=== PATIENT | female | born 1975 | race African-American/Black ===

== ENCOUNTER 2016-12-13 22:29 | Emergency (ER) | payer OTHER ==
[2016-12-13 23:09] VITALS: BP 164/87; PULSE 109; TEMP 99.5; BMI 36.8
--- NOTE | 2016-12-14 00:30 | PDOC ---
History of Present Illness <AakashSedashamika Berry - Last Filed: 12/14/16 01:55> - General History Source: Patient Exam Limitations: No Limitations - History of Present Illness Initial Comments: 12/14/16 01:57 The patient is a 39 year old female,, with a significant past medical history of Graves disease, cardiomyopathy after , gallstones, anemia, and HTN who presents to the ED complaining of suprapubic cramping and vaginal discharge. Patient had an US last week that revealed crown rump at 6 weeks with no motion. Patient states that her beta value went from 900 to 3500 last week. 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 She denies any fever or chills. She denies SOB or cp. <Marychuy Waldron - Last Filed: 12/14/16 01:59> - General Chief Complaint: Vaginal Bleeding Stated Complaint: VAGINAL BLEEDING/7 WKS Time Seen by Provider: 12/14/16 00:29 Past History - Past Medical History Anemia: Yes HTN: Yes Thyroid Disease: Yes (GRAVES DISEASE) - Psycho/Social/Smoking Cessation Hx Anxiety: Yes Suicidal Ideation: No Smoking Status: No Smoking History: Never smoked Have you smoked in the past 12 months: No Number of Cigarettes Smoked Daily: 0 Information on smoking cessation initiated: No Hx Alcohol Use: No Drug/Substance Use Hx: No Substance Use Type: None Hx Substance Use Treatment: No <Seda Finn - Last Filed: 12/14/16 01:55> <Marychuy Waldron - Last Filed: 12/14/16 01:59> - Past Medical History Allergies/Adverse Reactions: Allergies Allergy/AdvReac Type Severity Reaction Status Date / Time aspirin AdvReac Verified 12/13/16 23:08 Home Medications: Ambulatory Orders Carvedilol [Coreg] 6.25 mg PO DAILY 09/26/12 Lisinopril [Prinivil] 10 mg PO DAILY 09/26/12 Amlodipine Besylate [Norvasc -] 5 mg PO DAILY #0 tablet 09/28/12 Review of Systems - Review of Systems Able to Perform ROS?: Yes Comments:: 12/14/16 01:58 CONSTITUTIONAL: Absent: fever, chills, diaphoresis, generalized weakness, malaise, loss of appetite HEENT: Absent: rhinorrhea, nasal congestion, throat pain, throat swelling, difficulty swallowing, mouth swelling, ear pain, eye pain, visual Changes CARDIOVASCULAR: Absent: chest pain, syncope, palpitations, irregular heart rate, lightheadedness , peripheral edema RESPIRATORY: Absent: cough, shortness of breath, dyspnea with exertion, orthopnea, wheezing, stridor, hemoptysis GASTROINTESTINAL: Present: abdominal cramping Absent: abdominal pain, abdominal distension, nausea, vomiting, diarrhea, constipation, melena, hematochezia GENITOURINARY: Present: vaginal discharge Absent: dysuria, frequency, urgency, hesitancy, hematuria, flank pain, genital pain MUSCULOSKELETAL: Absent: myalgia, arthralgia, joint swelling SKIN: Absent: rash, itching, pallor HEMATOLOGIC/IMMUNOLOGIC: Absent: easy bleeding, easy bruising, lymphadenopathy, frequent infections ENDOCRINE: Absent: unexplained weight gain, unexplained weight loss, heat intolerance, cold intolerance NEUROLOGIC: Absent: headache, focal weakness or paresthesias, dizziness, unsteady gait, seizure, mental status changes, bladder or bowel incontinence PSYCHIATRIC: Absent: anxiety, depression, suicidal or homicidal ideation, hallucinations. <Marychuy Waldron - Last Filed: 12/14/16 01:59> *Physical Exam - Vital Signs Last Vital Signs Temp Pulse Resp BP Pulse Ox 99.5 F 109 H 20 164/87 100 12/13/16 23:05 12/13/16 23:05 12/13/16 23:05 12/13/16 23:05 12/13/16 23:05 <Seda Finn - Last Filed: 12/14/16 01:55> - Vital Signs Last Vital Signs Temp Pulse Resp BP Pulse Ox 99.5 F 109 H 20 164/87 100 12/13/16 23:05 12/13/16 23:05 12/13/16 23:05 12/13/16 23:05 12/13/16 23:05 - Physical Exam Comments: 12/14/16 01:58 GENERAL: Well developed, well nourished. Awake and alert. No acute distress. HEENT: Normocephalic, atraumatic. PERRLA, EOMI. No conjunctival pallor. Sclera are non- icteric. Moist mucous membranes. Oropharynx is clear. NECK: Supple. Full ROM. No JVD. Carotid pulses 2+ and symmetric, without bruits. No thyromegaly. No lymphadenopathy. CARDIOVASCULAR: Regular rate and rhythm. No murmurs, rubs, or gallops. Distal pulses are 2+ and symmetric. PULMONARY: No evidence of respiratory distress. Lungs clear to auscultation bilaterally. No wheezing, rales or rhonchi. ABDOMINAL: Soft. Non-tender. Non-distended. No rebound or guarding. No organomegaly. Normoactive bowel sounds. MUSCULOSKELETAL Normal range of motion at all joints. No bony deformities or tenderness. No CVA tenderness. EXTREMITIES: No cyanosis. No clubbing. No edema. No calf tenderness. SKIN: Warm and dry. Normal capillary refill. No rashes. No jaundice. NEUROLOGICAL: Alert, awake, appropriate. Cranial nerves 2-12 intact. No deficits to light touch and temperature in face, upper extremities and lower extremities. No motor deficits in the in face, upper extremities and lower extremities. Normoreflexic in the upper and lower extremities. Normal speech. PSYCHIATRIC: Cooperative. Good eye contact. Appropriate mood and affect. <Marychuy Waldron - Last Filed: 12/14/16 01:59> ED Treatment Course - LABORATORY CBC & Chemistry Diagram: 12/14/16 00:37 <Seda Finn - Last Filed: 12/14/16 01:55> - LABORATORY CBC & Chemistry Diagram: 12/14/16 00:37 - ADDITIONAL ORDERS Additional order review: Laboratory Results 12/14/16 12/14/16 00:39 00:37 Beta HCG, Quant 18924.6 Urine Color Ltyellow Urine Appearance Clear Urine pH 6.0 Urine Protein 1+ H Urine Glucose (UA) Negative Urine Ketones Trace H Urine Blood 2+ H Urine Nitrite Negative Urine Bilirubin Negative Urine Urobilinogen Negative Ur Leukocyte Esterase 3+ H 12/14/16 00:37 RBC 3.86 MCV 70.8 L MCHC 30.3 L RDW 21.6 H D MPV 6.5 L Neutrophils % 63.6 Lymphocytes % 26.5 D Monocytes % 8.5 Eosinophils % 1.1 Basophils % 0.3 - RADIOLOGY Radiology Studies Ordered: 12/14/16 01:59 This is a preliminary report by imaging customer service correspondence clerk Exam: Transabdominal and endovaginal OB sonogram Images: 29 Clinical indication: Rule out ectopic. Findings: The uterus is anteverted and gravid on endovaginal images the uterus measures 10.3 x 6.2 x 7.6 cm. A normal yolk sac is not clearly seen. [place]gwick-rump length measurements of the pole corresponds to 6 weeks 4 days. No detectable heart motion. Impression: demise. THIS DOCUMENT HAS BEEN ELECTRONICALLY SIGNED Kamlesh Howell M.D. <Marychuy Waldron - Last Filed: 12/14/16 01:59> *DC/Admit/Observation/Transfer <Seda Finn - Last Filed: 12/14/16 01:55> <Marychuy Waldron - Last Filed: 12/14/16 01:59> Diagnosis at time of Disposition: demise - Referrals Referrals: Shanice Souza MD [Primary Care Provider] - Anurag Lal MD [Staff Physician] - - Patient Instructions Printed Discharge Instructions: DI for Threatened Additional Instructions: please follow up with your deputy sheriff court services
[2016-12-14 00:49] LABS: BASOPHIL 0.3 % (0-2.0); EOSINOPHIL 1.1 % (0-4.5); MCH 21.5 pg (25.7-33.7); MCHC 30.3 g/dl (32.0-36.0); MEAN CELL VOLUME 70.8 fl (80-96); MEAN PLT VOLUME 6.5 fl (7.5-11.1); NEUTROPHILS 63.6 % (42.8-82.8); PLATELET COUNT 317 K/MM3 (134-434); RDW 21.6 % (11.6-15.6); WHITE BLOOD COUNT 7.1 K/mm3 (4.0-10.0)
[2016-12-14 00:55] LABS: URINE APPEARANCE CLEAR; URINE BILIRUBIN NEGATIVE (NEGATIVE); URINE COLOR LTYELLOW; URINE GLUCOSE (UA) NEGATIVE (NEGATIVE); URINE KETONE TRACE (NEGATIVE); URINE NITRITE NEGATIVE (NEGATIVE); URINE UROBILINOGEN NEGATIVE E.U./dl (0.2-1.0)
[2016-12-14 01:03] LABS: URINE BLOOD 2+ (NEGATIVE); URINE LEUK ESTERASE 3+ (NEGATIVE); URINE PROTEIN 1+ (NEGATIVE)
[2016-12-14 03:25] LABS: URINE MUCUS RARE; URINE RBC 10 /hpf (0-3); URINE WBC 2 /hpf (3-5)
[2016-12-14 08:01] LABS: ANISOCYTOSIS 2+; HYPOCHROMIA 1+; MICROCYTOSIS 2+
== END 2016-12-14 02:07 | disposition home or self-care (01) ==
LOC: JER 22:29 → SUPCPDRO 22:29 → JER 12-14 02:07
DX: O02.1 Missed abortion (principal); Z3A.01 Less than 8 weeks gestation of pregnancy
CPT/HCPCS: 36415; 76817-TC; 81003; 81015; 84702; 85025; 86850; 86900; 86901; 99282-25

== ENCOUNTER 2016-12-17 11:04 | Emergency (ER) | payer OTHER ==
[2016-12-17 11:17] VITALS: BP 148/89; PULSE 86; TEMP 98.2; BMI 82.8
--- NOTE | 2016-12-17 11:19 | PDOC ---
History of Present Illness - General History Source: Patient Exam Limitations: No Limitations - History of Present Illness Initial Comments: CHIEF COMPLAINT: 39 y/o afebrile female, approximately 8 weeks female with LMP mid october c/o abdominal and back pain with vaginal bleeding. HISTORY OF PRESENT ILLNESS: The patient has a PMH of Grave's disease, cardiomyopathy after , gallstones, anemia, and HTN seen here 4 days ago diagnosed with demise here for intolerable lower abdominal and back cramping, along with vaginal bleeding. She states she started bleeding heavily yesterday and today cannot tolerate the cramps. She states she took tylenol at home with no relief. She denies f/c, n/v/d, CP, SOB, dysuria. OB is Dr. Parham. Vital signs on arrival are within normal limits. REVIEW OF SYSTEMS: GENERAL/CONSTITUTIONAL: No fever/chills. No weakness. No weight change. HEAD, EYES, EARS, NOSE AND THROAT: No change in vision. No ear pain or discharge. No sore throat. CARDIOVASCULAR: No chest pain or shortness of breath. RESPIRATORY: No cough, wheezing, or hemoptysis. GASTROINTESTINAL: +abdominal and back cramping. No nausea, vomiting, diarrhea. GENITOURINARY: +vaginal bleeding. No dysuria, frequency, or change in urination. MUSCULOSKELETAL: No joint or muscle swelling or pain. No neck or back pain. SKIN: No rash or easy bruising. NEUROLOGIC: No headache, vertigo, loss of consciousness, or loss of sensation. PHYSICAL EXAM: GENERAL: The patient is awake, alert, and fully oriented, pacing back and forth in the ER asking for pain medication. HEAD: Normal with no signs of trauma. ENT: Pupils equal, round and reactive to light, extraocular movements intact, sclera anicteric, conjunctiva clear. Neck supple. LUNGS: Clear to auscultation bilaterally. Normal excursion. No respiratory distress or use of accessory muscles. CV: RRR, S1/S2, no MRG. Cap refill < 2 sec. ABDOMEN: Soft, non-distended, non-tender even to deep palpation, no hepatomegaly or splenomegaly, no masses. VAGINAL: DEFERRED EXTREMITIES: Normal range of motion, no edema. NEUROLOGICAL: Normal speech, normal gait. CN II-XII grossly intact. PSYCH: Normal mood, normal affect. SKIN: Warm, dry, normal turgor, no rashes or lesions noted. <Nikki Crum - Last Filed: 12/17/16 15:28> <Maribell Douglas - Last Filed: 12/18/16 08:39> - General Stated Complaint: PAIN Time Seen by Provider: 12/17/16 11:06 Past History - Past Medical History Anemia: Yes HTN: Yes Thyroid Disease: Yes (GRAVES DISEASE) - Reproductive History (#): 3 Para: 4 - Psycho/Social/Smoking Cessation Hx Anxiety: Yes Suicidal Ideation: No Smoking Status: No Smoking History: Never smoked Have you smoked in the past 12 months: No Number of Cigarettes Smoked Daily: 0 Hx Alcohol Use: No Drug/Substance Use Hx: No Substance Use Type: None Hx Substance Use Treatment: No <Nikki Crum - Last Filed: 12/17/16 15:28> <Maribell Douglas - Last Filed: 12/18/16 08:39> - Past Medical History Allergies/Adverse Reactions: Allergies Allergy/AdvReac Type Severity Reaction Status Date / Time aspirin AdvReac Verified 12/17/16 11:18 Home Medications: Ambulatory Orders Carvedilol [Coreg] 6.25 mg PO DAILY 09/26/12 Lisinopril [Prinivil] 10 mg PO DAILY 09/26/12 Amlodipine Besylate [Norvasc -] 5 mg PO DAILY #0 tablet 09/28/12 Oxycodone HCl/Acetaminophen [Percocet 5-325 mg Tablet] 1 tab PO Q6H #5 tablet MDD 5 12/17/16 *Physical Exam - Vital Signs Last Vital Signs Temp Pulse Resp BP Pulse Ox 98.2 F 86 20 148/89 12/17/16 11:14 12/17/16 11:14 12/17/16 11:14 12/17/16 11:14 <Maribell Douglas - Last Filed: 12/18/16 08:39> ED Treatment Course - LABORATORY CBC & Chemistry Diagram: 12/17/16 11:20 12/17/16 11:20 <Nikki Crum - Last Filed: 12/17/16 15:28> - LABORATORY CBC & Chemistry Diagram: 12/17/16 11:20 12/17/16 11:20 - ADDITIONAL ORDERS Additional order review: 12/17/16 11:20 RBC 4.00 MCV 69.6 L MCHC 31.1 L RDW 21.5 H MPV 6.2 L Neutrophils % 72.6 Lymphocytes % 20.1 D Monocytes % 6.4 Eosinophils % 0.6 Basophils % 0.3 - Medications Given in the ED: ED Medications Discontinued Medications Generic Name Dose Route Start Last Admin Trade Name Santos PRN Reason Stop Dose Admin Ketorolac Tromethamine 30 mg 12/17/16 11:53 12/17/16 11:59 Toradol Injection - IVPUSH 12/17/16 11:54 30 mg ONCE ONE Administration Oxycodone/Acetaminophen 2 combo 12/17/16 12:41 12/17/16 13:11 Percocet 5/325 - PO 12/17/16 12:42 2 combo ONCE ONE Administration <Maribell Douglas - Last Filed: 12/18/16 08:39> Medical Decision Making - Medical Decision Making A/P: 41 y/o afebrile female diagnosed with demise on 12/13 here for abdominal cramping and vaginal bleeding. Plan is as follows: 1. Labs 2. UA/culture 3. IV toradol 4. IV fluids 5. Transvaginal ultrasound Labs unremarkable. Pt unable to tolerate ultrasound after toradol secondary to continued pain. Ordered 2 percocet. Pt now feels well enough for ultrasound. Transvaginal Ultrasound IMPRESSION: Intrauterine gestational sac in the lower uterine segment with a pole identified. Estimated gestational age is 6 weeks, 5 days. No heart activity could be documented with demise. Moderate amount of complex fluid within a dilated cervical canal measuring 2.8cm in AP dimension likely representing hemorrhage/blood clots. Correlate clinically. Gave patient all of her results. She is much more comfortable after percocet. Will discharge to home with rx for quantity of 5 percocet. instructed her not to take tylenol while taking percocet. Suggested she also take Motrin with the percocet. Informed her percocet can make her drowsy. Instructed her to call Dr. Parham on Monday for follow up and return to the ER with any worsening or concerning symptoms. The patient verbalizes understanding of all instructions, has no further questions and is awaiting discharge. <Nikki Crum - Last Filed: 12/17/16 15:28> *DC/Admit/Observation/Transfer <Nikki Crum - Last Filed: 12/17/16 15:28> - Attestations Physician Attestion: I reviewed the case with the mid-level practitioner and agree with the mid- level practitioner's assessment, diagnosis and disposition. <DouglasMaribell - Last Filed: 12/18/16 08:39> Diagnosis at time of Disposition: demise, Miscarriage - Discharge Dispostion Disposition: HOME Condition at time of disposition: Improved - Prescriptions Prescriptions: Oxycodone HCl/Acetaminophen [Percocet 5-325 mg Tablet] 1 tab PO Q6H #5 tablet MDD 5 - Referrals Referrals: Shanice Souza MD [Primary Care Provider] - Anurag Lal MD [Staff Physician] - (Call Monday) - Patient Instructions Printed Discharge Instructions: DI for Miscarriage Additional Instructions: Discharge Instructions: -A prescription for pain medication has been sent to your pharmacy; it may cause drowsiness -Do not take Tylenol with the prescription pain medication; you can take Motrin with the prescription pain medication -Please call Dr. Lal on Monday to schedule follow up appointment -Return to the ER with any worsening or concerning symptoms.
[2016-12-17 11:30] LABS: BASOPHIL 0.3 % (0-2.0); EOSINOPHIL 0.6 % (0-4.5); MCH 21.6 pg (25.7-33.7); MCHC 31.1 g/dl (32.0-36.0); MEAN CELL VOLUME 69.6 fl (80-96); MEAN PLT VOLUME 6.2 fl (7.5-11.1); NEUTROPHILS 72.6 % (42.8-82.8); PLATELET COUNT 336 K/MM3 (134-434); RDW 21.5 % (11.6-15.6); WHITE BLOOD COUNT 8.2 K/mm3 (4.0-10.0)
[2016-12-17] MEDS ORDERED: KETOROLAC TROMETHAMINE 30 MG/1 ML VIAL IVPUSH ONE (11:53)
[2016-12-17] MEDS ORDERED: KETOROLAC TROMETHAMINE 30 MG/1 ML VIAL ONE (11:56)
[2016-12-17 11:57] LABS: ALBUMIN 3.1 g/dl (3.4-5.0); ANION GAP 10 (8-16); BILIRUBIN,TOTAL 0.3 mg/dL (0.2-1.0); CALCIUM 8.5 mg/dL (8.5-10.1); CO2 23 mmol/L (21-32); CREATININE 0.6 mg/dL (0.55-1.02); GLUCOSE,RANDOM 120 mg/dL (74-106); SGOT/AST 12 U/L (15-37); SGPT/ALT 17 U/L (12-78); TOT PROT 7.2 g/dl (6.4-8.2)
[2016-12-17 12:14] LABS: ALK PHOS 50 U/L (45-117)
[2016-12-17] MEDS ORDERED: OXYCODONE/APAP 5/325MG COMBO TABLET PO ONE (12:41)
[2016-12-17] MEDS ORDERED: OXYCODONE/APAP 5/325MG COMBO TABLET ONE (12:45)
[2016-12-17 13:04] LABS: ANISOCYTOSIS 2+; HYPOCHROMIA 1+; MICROCYTOSIS 1+
== END 2016-12-17 16:23 | disposition home or self-care (01) ==
LOC: JER 11:04
PROC: 3E0333Z Introduction of Anti-inflammatory into Peripheral Vein, Percutaneous Approach (ICD-10-PCS; principal; 2016-12-17)
DX: O02.1 Missed abortion (principal); O36.4XX0 Maternal care for intrauterine death, not applicable or unspecified; Z3A.01 Less than 8 weeks gestation of pregnancy
CPT/HCPCS: 36415; 76817-TC; 80053; 84702; 85025; 86850; 86900; 86901; 96374; 99285-25

== ENCOUNTER 2017-07-19 14:44 | Emergency (ER) | payer OTHER ==
--- NOTE | 2017-07-19 15:14 | PDOC ---
Rapid Medical Evaluation Time Seen by Provider: 07/19/17 15:09 Medical Evaluation: Allergies Allergy/AdvReac Type Severity Reaction Status Date / Time aspirin AdvReac Verified 07/19/17 15:09 07/19/17 15:09 I have performed a brief in-person evaluation of this patient. The patient presents with a chief complaint of: saw TEST DATA DEVELOPER at Dr. Souza's office today , was sent here for BP 160/110, D&C 4 days ago at 5 wkspreg "at the [facility]" but unknown surgeon, "feeling weird" since then, dizzy, lightheaded, still bleeding (not more than one pad an hour), denies pain/cramping Pertinent physical exam findings: well appearing I have ordered the following: CBC, CMP, T&S, UA, UCx The patient will proceed to the ED for further evaluation. Discharge Disposition - Diagnosis Hypertension - Referrals Referrals: Shanice Souza MD [Primary Care Provider] - - Patient Instructions - Post Discharge Activity
[2017-07-19 15:16] VITALS: BMI 35.2
[2017-07-19 16:49] LABS: URINE APPEARANCE CLEAR; URINE BILIRUBIN NEGATIVE (NEGATIVE); URINE BLOOD 3+ (NEGATIVE); URINE COLOR STRAW; URINE GLUCOSE (UA) NEGATIVE (NEGATIVE); URINE KETONE NEGATIVE (NEGATIVE); URINE LEUK ESTERASE TRACE (NEGATIVE); URINE NITRITE NEGATIVE (NEGATIVE); URINE PROTEIN NEGATIVE (NEGATIVE); URINE UROBILINOGEN NEGATIVE mg/dL (0.2-1.0)
--- NOTE | 2017-07-19 17:11 | PDOC ---
History of Present Illness <Martínez Benjamin - Last Filed: 07/19/17 18:26> - General History Source: Patient Exam Limitations: No Limitations - History of Present Illness Initial Comments: 07/19/17 16:55 Patient is a with history of pre-eclampsia in a prior , HTN, and DNC on 07/14/17 for demise here today complaining of lightheadedness and dizziness. She was sent in from her PCP office for her symptoms and a BP of 160/ 110. She endorses having a few episodes of palpitations as well, but denies chest pain. Denies fevers, chills, nausea, vomiting, and abdominal pain. She states that she still having vaginal bleeding after her procedure, less than one pad per hour. She states that she was told to expect to have some bleeding for up to 2 weeks. She states that before her she was on multiple blood pressure medications. She is currently taking 400mg of labetalol. Her was at 19wks when it was terminated. She reports that she was told that ultrasound the fetus about 1-2wks before the DNC. She had no pre- eclampsia during this PCP: Shanice Souza (PERSONALIZATION SPECIALIST Anika Franklin saw patient today) OBGYN: Anurag Lal <Aakash Weir - Last Filed: 07/19/17 18:58> - General Chief Complaint: Blood Pressure Problem Stated Complaint: SENT BY PCP: HTN Time Seen by Provider: 07/19/17 15:09 Past History <Martínez Benjamin - Last Filed: 07/19/17 18:26> - Past Medical History Anemia: Yes COPD: No HTN: Yes Thyroid Disease: Yes (GRAVES DISEASE) - Reproductive History (#): 3 Para: 4 - Suicide/Smoking/Psychosocial Hx Smoking Status: No Smoking History: Never smoked Have you smoked in the past 12 months: No Number of Cigarettes Smoked Daily: 0 Information on smoking cessation initiated: No Hx Alcohol Use: No Drug/Substance Use Hx: No Substance Use Type: None Hx Substance Use Treatment: No <Aakash Weir - Last Filed: 07/19/17 18:58> - Past Medical History Allergies/Adverse Reactions: Allergies Allergy/AdvReac Type Severity Reaction Status Date / Time aspirin AdvReac Verified 07/19/17 15:09 Home Medications: Ambulatory Orders Carvedilol [Coreg] 6.25 mg PO DAILY 09/26/12 Lisinopril [Prinivil] 10 mg PO DAILY 09/26/12 Amlodipine Besylate [Norvasc -] 5 mg PO DAILY #0 tablet 09/28/12 Oxycodone HCl/Acetaminophen [Percocet 5-325 mg Tablet] 1 tab PO Q6H #5 tablet MDD 5 12/17/16 Amlodipine Besylate [Norvasc -] 5 mg PO DAILY #30 tablet 07/19/17 Carvedilol [Coreg] 3.125 mg PO BID #60 tablet 07/19/17 Review of Systems - Review of Systems Comments:: 07/19/17 17:11 GENERAL/CONSTITUTIONAL: No fever or chills. No weakness. HEAD, EYES, EARS, NOSE AND THROAT: No change in vision. No ear pain or discharge. No sore throat. CARDIOVASCULAR: No chest pain or shortness of breath RESPIRATORY: No cough, wheezing, or hemoptysis. GASTROINTESTINAL: No nausea, vomiting, diarrhea or constipation. GENITOURINARY: No dysuria, frequency, or change in urination. MUSCULOSKELETAL: No joint or muscle swelling or pain. No neck or back pain. SKIN: No rash NEUROLOGIC: No headache, loss of consciousness, or change in strength/sensation. ENDOCRINE: No increased thirst. No abnormal weight change HEMATOLOGIC/LYMPHATIC: Positive for history of anemia. Negative easy bleeding, or history of blood clots. ALLERGIC/IMMUNOLOGIC: No hives or skin allergy. <Aakash Weir - Last Filed: 07/19/17 18:58> *Physical Exam - Vital Signs Last Vital Signs Temp Pulse Resp BP Pulse Ox 98.4 F 86 18 179/114 97 07/19/17 15:09 07/19/17 15:09 07/19/17 15:09 07/19/17 15:09 07/19/17 15:09 <Martínez Benjamin - Last Filed: 07/19/17 18:26> - Vital Signs Last Vital Signs Temp Pulse Resp BP Pulse Ox 98.4 F 86 18 179/114 97 07/19/17 15:09 07/19/17 15:09 07/19/17 15:09 07/19/17 15:09 07/19/17 15:09 - Physical Exam Comments: 07/19/17 17:12 GENERAL: Awake, alert, and fully oriented, in no acute distress HEAD: No signs of trauma, normocephalic, atraumatic EYES: PERRLA, EOMI, sclera anicteric, conjunctiva clear ENT: Auricles normal inspection, hearing grossly normal, nares patent, oropharynx clear without exudates. Moist mucosa LUNGS: No distress, speaks full sentences, clear to auscultation bilaterally HEART: Regular rate and rhythm, normal S1 and S2, no murmurs, rubs or gallops, peripheral pulses normal and equal bilaterally. EXTREMITIES: Normal inspection, Normal range of motion, no edema. No clubbing or cyanosis. NEUROLOGICAL: Cranial nerves II through XII grossly intact. Normal speech, normal gait, no focal sensorimotor deficits SKIN: Warm, Dry, normal turgor, no rashes or lesions noted. <Aakash Weir - Last Filed: 07/19/17 18:58> ED Treatment Course - LABORATORY CBC & Chemistry Diagram: 07/19/17 15:22 07/19/17 15:22 - ADDITIONAL ORDERS Additional order review: Laboratory Results 07/19/17 07/19/17 15:26 15:22 PT with INR 12.20 H INR 1.08 Urine Color Straw Urine Appearance Clear Urine pH 6.0 Ur Specific [place] 1.006 Urine Protein Negative Urine Glucose (UA) Negative Urine Ketones Negative Urine Blood 3+ H Urine Nitrite Negative Urine Bilirubin Negative Urine Urobilinogen Negative Ur Leukocyte Esterase Trace Urine WBC (Auto) 2 Urine RBC (Auto) 3 Ur Epithelial Cells Rare 07/19/17 15:22 RBC 4.09 MCV 81.8 MCHC 32.3 RDW 18.2 H D MPV 6.4 L Neutrophils % 66.0 Lymphocytes % 28.7 D Monocytes % 4.0 Eosinophils % 1.0 Basophils % 0.3 <Martínez Benjamin - Last Filed: 07/19/17 18:26> - LABORATORY CBC & Chemistry Diagram: 07/19/17 15:22 07/19/17 15:22 - RADIOLOGY Radiology Studies Ordered: Category Date Time Status CHEST PA & LAT [RAD] Stat Radiology 07/19/17 16:33 Ordered <Aakash Weir - Last Filed: 07/19/17 18:58> Medical Decision Making - Medical Decision Making 07/19/17 16:55 Put out a call to Dr. Lal, awaiting callback 07/19/17 17:[address] Lal regarding this patient 07/19/17 18:[address] Haywood regarding this pt. <Martínez Benjamin - Last Filed: 07/19/17 18:26> - Medical Decision Making 07/19/17 17:13 Patient is a 41F with history of pre-eclampsia in prior , recent DNC on 07/14/17, and HTN here today complaining of light-headedness and dizziness with high blood pressure. Patient states that she is currently symptom free. Vital signs are notable for 179/114, otherwise normal. Neuro exam unremarkable. PERSONALIZATION SPECIALIST Anika Franklin contacted, states that she does not believe this is pre- eclampsia and is instead of manifestation of patient's HTN. Call placed to Dr Lal. Believe this is not likely to be pre-eclampsia given patient's gestational age at termination and symptom presentation. Will evaluate with CBC , CMP, Trop, EKG, UA, CXR to evaluate for possible end organ damage. Do not believe patient's presentation, which is without headache, is consistent with a need for CT head. 07/19/17 18:[address] Lal, who recommends calling on staff OB. Dr Haywood contact, states that this is most likely essential hypertension. Feels safe to discharge if labs continue to be normal. 07/19/17 18:56 Laboratory Tests 07/19/17 07/19/17 07/19/17 15:22 15:22 15:22 WBC 5.0 D Hgb 10.8 D Hct 33.5 D Plt Count 308 INR 1.08 Creatinine 0.7 Creat Clearance w eGFR > 60 Troponin I < 0.02 Urine Blood Urine Nitrite Ur Leukocyte Esterase Urine WBC (Auto) Urine RBC (Auto) Ur Epithelial Cells 07/19/17 15:26 WBC Hgb Hct Plt Count INR Creatinine Creat Clearance w eGFR Troponin I Urine Blood 3+ H Urine Nitrite Negative Ur Leukocyte Esterase Trace Urine WBC (Auto) 2 Urine RBC (Auto) 3 Ur Epithelial Cells Rare CBC normal, INR nromal. CMP normal. Trop negative. Kidney function normal. UA shows blood, but likely contaminant. WBC <5. CXR pending. 07/19/17 18:58 CXR normal. Will discharge home with PCP follow up. <Huls,Aakash - Last Filed: 07/19/17 18:58> *DC/Admit/Observation/Transfer <Martínez Benjamin - Last Filed: 07/19/17 18:26> - Discharge Dispostion Admit: No <Aakash Weir - Last Filed: 07/19/17 18:58> Diagnosis at time of Disposition: Hypertension - Discharge Dispostion Disposition: HOME Condition at time of disposition: Good - Prescriptions Prescriptions: Amlodipine Besylate [Norvasc -] 5 mg PO DAILY #30 tablet Carvedilol [Coreg] 3.125 mg PO BID #60 tablet - Referrals Referrals: Shanice Souza MD [Primary Care Provider] - - Patient Instructions Printed Discharge Instructions: DI for High Blood Pressure Additional Instructions: You were seen today in the ED for high blood pressure. Please take your blood pressure medication as prescribed. Please follow up with your primary care physician for how to manage your blood pressure after your in the next week. - Post Discharge Activity
[2017-07-19 17:32] LABS: BASO % 0.3 % (0-2.0); HEMATOCRIT 33.5 % (32.4-45.2); HEMOGLOBIN 10.8 GM/dL (10.7-15.3); LYMPH % 28.7 % (8-40); MCH 26.4 pg (25.7-33.7); MCHC 32.3 g/dl (32.0-36.0); MEAN CELL VOLUME 81.8 fl (80-96); MEAN PLT VOLUME 6.4 fl (7.5-11.1); PLATELET COUNT 308 K/MM3 (134-434); RBC 4.09 M/mm3 (3.60-5.2); RDW 18.2 % (11.6-15.6)
[2017-07-19 17:43] LABS: EPI CELLS RARE /HPF (FEW)
[2017-07-19 18:04] LABS: INR 1.08 (0.82-1.09); PROTHROMBIN TIME (PATIENT) 12.2 SEC (9.98-11.88)
[2017-07-19 18:31] VITALS: BP 188/109; PULSE 80; TEMP 99.4
[2017-07-19] MEDS ORDERED: amLODIPine BESYLATE 5 MG TABLET (FP) PO ONE (18:31)
[2017-07-19] MEDS ORDERED: CARVEDILOL 3.125 MG TABLET (FP) PO ONE (18:31)
[2017-07-19] MEDS ORDERED: amLODIPine BESYLATE 5 MG TABLET (FP) ONE (18:38)
[2017-07-19] MEDS ORDERED: CARVEDILOL 3.125 MG TABLET (FP) ONE (18:39)
[2017-07-19 18:43] LABS: ALBUMIN 3.3 g/dl (3.4-5.0); ANION GAP 6 (8-16); BLOOD UREA NITROGEN 9 mg/dL (7-18); CALCIUM 8.2 mg/dL (8.5-10.1); CHLORIDE 106 mmol/L (98-107); CO2 28 mmol/L (21-32); CREATININE 0.7 mg/dL (0.55-1.02); GLUCOSE,RANDOM 86 mg/dL (74-106); MAGNESIUM 2.1 mg/dL (1.8-2.4); POTASSIUM 3.5 mmol/L (3.5-5.1); SGOT/AST 15 U/L (15-37); SGPT/ALT 25 U/L (12-78); SODIUM 140 mmol/L (136-145)
--- NOTE | 2017-07-19 18:46 | PDOC ---
Attending Attestation - Resident Resident Name: Aakash Weir - ED Attending Attestation I have performed the following: I have examined & evaluated the patient, The case was reviewed & discussed with the resident, I agree w/resident's findings & plan, Exceptions are as noted - HPI HPI: 07/19/17 18:40 Ms Gupta is a 41 yo F with a history of essential hypertension , s/p D&C for at 19 weeks Pt was seen by her pmd today Complained of dizziness No headache No visual changes No chest pain NO shortness of breath NO palpitations No nausea or diaphoresis No headache - Physicial Exam PE: 07/19/17 18:43 GENERAL: The patient is in no acute distress. HEAD: Normal EYES: PERRLA, EOMI, sclera anicteric, conjunctiva clear. ENT: Ears normal, nares patent, oropharynx clear without exudates. Moist mucous membranes. NECK: Normal range of motion, supple without JVD LUNGS: Breath sounds equal, clear to auscultation bilaterally. No wheezes, and no crackles. HEART:Regular rate and rhythm, normal S1 and S2 without murmur, rub or gallop. ABDOMEN: Soft, nontender, EXTREMITIES: Normal range of motion, no edema. NEUROLOGICAL: Cranial nerves II through XII grossly intact. Normal speech. No focal neurological deficits. SKIN: Warm, Dry, normal turgor, no rashes or lesions noted. - Medical Decision Making 07/19/17 18:44 41-year-old female presented to emergency department with a complaint of dizziness, found to be hypertensive. Patient has a prior history of hypertension for which she had been on 3 agents. She is transition to another medication regimen in light of her . Patient is status post intrauterine demise, and D&C Blood pressure most likely related to the essential hypertension, however possibility exists that this is preeclampsia. Will do: Labs, EKG, chest x-ray case reviewed with patient's sample display preparer, who had nothing to add Case reviewed with on-call sample display preparer who did not think this was pre ecclampsia Laboratory Tests 07/19/17 07/19/17 07/19/17 15:22 15:22 15:26 WBC 5.0 D Hgb 10.8 D Hct 33.5 D Plt Count 308 Neutrophils % 66.0 Lymphocytes % 28.7 D INR 1.08 Urine Protein Negative EKG: SR, rate of 73 bpm , axis is nml, no ST elevations or depression, (+)LVH Will discharge to home on her home medications Clinical Impression: Essential hypertension, initial presentation 07/19/17 18:46
[2017-07-19 18:47] LABS: ALK PHOS 47 U/L (45-117); BILIRUBIN,TOTAL 0.3 mg/dL (0.2-1.0); TOT PROT 7.4 g/dl (6.4-8.2)
--- NOTE | 2017-07-20 11:50 | EKG ---
Test Reason : Blood Pressure : / mmHG Vent. Rate : 073 BPM Atrial Rate : 073 BPM P-R Int : 164 ms QRS Dur : 076 ms QT Int : 406 ms P-R-T Axes : 055 012 020 degrees QTc Int : 447 ms NORMAL SINUS RHYTHM LEFT VENTRICULAR HYPERTROPHY WITH REPOLARIZATION ABNORMALITY ABNORMAL ECG WHEN COMPARED WITH ECG OF 21-JUL-2015 11:13, NO SIGNIFICANT CHANGE WAS FOUND Confirmed by BONG SULLIVAN MD ([id number]) on 07/20/2017 11:50:35 AM Referred By: Confirmed By:BONG SULLIVAN MD
== END 2017-07-19 19:22 | disposition home or self-care (01) ==
LOC: JER 14:44
DX: I10 Essential (primary) hypertension (principal); Z98.890 Other specified postprocedural states
CPT/HCPCS: 36415; 71046-TC-FY; 80053; 81003; 81015; 82550; 83735; 84484; 84702; 85025; 85610; 86850; 86900; 86901; 93005; 93010; 99282-25

== ENCOUNTER 2018-03-20 10:53 | Emergency (ER) | payer OTHER ==
[2018-03-20 11:19] VITALS: BP 130/89; PULSE 96; TEMP 98.5; BMI 34.3
--- NOTE | 2018-03-20 11:49 | PDOC ---
History of Present Illness - General Chief Complaint: Sore Throat Stated Complaint: COUGHING, BREATHING PROBLEMS Time Seen by Provider: 03/20/18 11:43 - History of Present Illness Initial Comments: 03/20/18 11:46 42-year-old female presents for evaluation of nonproductive cough 5 days without associated symptoms. She has no comorbidities. Past History - Past Medical History Allergies/Adverse Reactions: Allergies Allergy/AdvReac Type Severity Reaction Status Date / Time aspirin AdvReac Verified 03/20/18 11:15 Home Medications: Ambulatory Orders Carvedilol [Coreg] 6.25 mg PO DAILY 09/26/12 Lisinopril [Prinivil] 10 mg PO DAILY 09/26/12 Amlodipine Besylate [Norvasc -] 5 mg PO DAILY #0 tablet 09/28/12 Oxycodone HCl/Acetaminophen [Percocet 5-325 mg Tablet] 1 tab PO Q6H #5 tablet MDD 5 12/17/16 Amlodipine Besylate [Norvasc -] 5 mg PO DAILY #30 tablet 07/19/17 Carvedilol [Coreg] 3.125 mg PO BID #60 tablet 07/19/17 Anemia: Yes COPD: No HTN: Yes Thyroid Disease: Yes (GRAVES DISEASE) - Reproductive History (#): 3 Para: 4 - Suicide/Smoking/Psychosocial Hx Smoking Status: No Smoking History: Never smoked Have you smoked in the past 12 months: No Number of Cigarettes Smoked Daily: 0 Hx Alcohol Use: No Drug/Substance Use Hx: No Substance Use Type: None Hx Substance Use Treatment: No Review of Systems - Review of Systems Respiratory: Yes: Cough All Other Systems: Reviewed and Negative *Physical Exam - Vital Signs Last Vital Signs Temp Pulse Resp BP Pulse Ox 98.5 F 96 H 16 130/89 99 03/20/18 11:15 03/20/18 11:15 03/20/18 11:15 03/20/18 11:15 03/20/18 11:15 - Physical Exam Comments: 03/20/18 11:47 HEAD: NC/AT EYES: Conjuntiva clear Ears: Canals and TM's normal NOSE: No d/c THROAT: Moist mucous membrances, oral pharanx clear, uvula midline NECK: Supple without adenopathy CARDIAC: S1 S2 LUNGS: CTA Full and Equal breath sounds ABDOMEN: Soft NT ND MS: Full ROM in all joints without edema NEUROLOGIC: No gross sensory or motor deficits, NVID SKIN: Normal color and temperature no lesions or rashes Medical Decision Making - Medical Decision Making Afebrile, benign exam, most likely viral syndrome or seasonal ALLERGIES. 03/20/18 11:47 *DC/Admit/Observation/Transfer Diagnosis at time of Disposition: Bronchitis - Discharge Dispostion Disposition: HOME Condition at time of disposition: Stable Decision to Admit order: No - Referrals Referrals: Shanice Souza MD [Primary Care Provider] - - Patient Instructions Printed Discharge Instructions: Acute Bronchitis Additional Instructions: Return to the emergency room should symptoms worsen or go unresolved. Please continue with Robitussin as needed. You may also want to try ALLERGY medication such as Zyrtec [id number] as this may be related to seasonal ALLERGIES. Follow-up with your primary care physician in one to 2 days for further evaluation and treatment options. - Post Discharge Activity Forms/Work/School Notes: Back to Work
== END 2018-03-20 12:04 | disposition home or self-care (01) ==
LOC: JER 10:53 → JERFT 10:53
DX: J40 Bronchitis, not specified as acute or chronic (principal); I10 Essential (primary) hypertension; E05.00 Thyrotoxicosis with diffuse goiter without thyrotoxic crisis or storm
CPT/HCPCS: 99281-25

== ENCOUNTER 2019-02-10 20:24 | Emergency (ER) | payer OTHER ==
[2019-02-10 20:35] VITALS: BP 140/90; PULSE 87; TEMP 98.4; BMI 32.5
--- NOTE | 2019-02-10 20:49 | PDOC ---
History of Present Illness - General Chief Complaint: Pain, Acute Stated Complaint: ABDOMINAL PAIN Time Seen by Provider: 02/10/19 20:48 History Source: Patient Exam Limitations: No Limitations - History of Present Illness Initial Comments: 43 year old female with PMH HTN, medication noncompliance, recent threatened (Dx yesterday @ [facility]) BIBA to ED for 20 minute episode of epigastric pain associated with nausea, which since has completely resolved. Pt reported she has felt this pain many times before, was told it was probably "indigestion". Pt reported she passed a large clot today, which she believes was her . Pt reported no lightheadedness, shortness of breath, vomiting , fever, cough, hemoptysis, leg swelling. Allergies: ASA ROS General: denied fever, chills, generalized weakness. HEENT: denied sore throat, rhinorrhea, ear pain. Cardiovascular: denied chest pain, palpitations, syncope, diaphoresis. Respiratory: denied shortness of breath, cough, sputum production, hemoptysis. Gastrointestinal: admitted to abdominal pain, nausea. denied vomiting, diarrhea , constipation, blood in stool. Genitourinary: denied dysuria, increased urinary frequency, hematuria, urinary incontinence, flank pain. Back: denied back pain. Musculoskeletal: denied joint pain, muscle pain, joint swelling. Neurological: denied headache, dizziness, numbness, tingling, weakness. Integumentary: denied rash, laceration, abrasion. Hematologic/Lymphatic: denied bruising or bleeding. PE Constitutional: Well-nourished, Well-developed, appearing stated age. HEENT: head is normocephalic, atraumatic. EOMI. PERRLA. Neck: supple. Full ROM. Cardiovascular: regular heart rhythm. no murmurs. no pericardial friction rub. Respiratory: clear to auscultation bilaterally. no crackles, rhonchi or wheezing. no stridor. Gastrointestinal: soft, nontender. normal bowel sounds. no rebound, guarding, masses. Extremities: peripheral pulses intact. no lower extremity edema. Neurological: CN 2-12 grossly intact. moves all four extremities. Psych: awake, alert, oriented x3. follows commands. answers questions appropriately. Past History - Past Medical History Allergies/Adverse Reactions: Allergies Allergy/AdvReac Type Severity Reaction Status Date / Time aspirin AdvReac Verified 02/10/19 20:25 Home Medications: Ambulatory Orders Carvedilol [Coreg] 6.25 mg PO DAILY 09/26/12 Lisinopril [Prinivil] 10 mg PO DAILY 09/26/12 Amlodipine Besylate [Norvasc -] 5 mg PO DAILY #0 tablet 09/28/12 Oxycodone HCl/Acetaminophen [Percocet 5-325 mg Tablet] 1 tab PO Q6H #5 tablet MDD 5 12/17/16 Amlodipine Besylate [Norvasc -] 5 mg PO DAILY #30 tablet 07/19/17 Carvedilol [Coreg] 3.125 mg PO BID #60 tablet 07/19/17 Anemia: Yes COPD: No HTN: Yes Thyroid Disease: Yes (GRAVES DISEASE) - Reproductive History (#): 3 Para: 4 - Suicide/Smoking/Psychosocial Hx Smoking Status: No Smoking History: Never smoked Have you smoked in the past 12 months: No Number of Cigarettes Smoked Daily: 0 Hx Alcohol Use: No Drug/Substance Use Hx: No Substance Use Type: None Hx Substance Use Treatment: No *Physical Exam - Vital Signs Last Vital Signs Temp Pulse Resp BP Pulse Ox 98.4 F 87 18 140/90 100 02/10/19 20:25 02/10/19 20:25 02/10/19 20:25 02/10/19 20:25 02/10/19 20:25 Medical Decision Making - Medical Decision Making 43 year old female with above PMH BIBA to ED for epigastric pain lasting 20 minutes, no completely resolved. Pt admitted to only taking her HTN medications every few days. Pt reported she has temporary insurance that only covers ED visits. Initial Vital Signs Temp Pulse Resp BP Pulse Ox 98.4 F 87 18 140/90 100 02/10/19 20:25 02/10/19 20:25 02/10/19 20:25 02/10/19 20:25 02/10/19 20:25 Afebrile. No tachycardia. No tachypnea. Mild hypertension. No hypoxia on room air. Labs ordered: none Medications ordered: none Imaging ordered: none EKG performed at 2144: rate 84, regular rhythm, normal axis, normal intervals, QTC 453, no acute ST changes. Pt discharged. Pt provided with [facility] Follow up. *DC/Admit/Observation/Transfer Diagnosis at time of Disposition: Epigastric pain - Discharge Dispostion Disposition: HOME Condition at time of disposition: Stable Decision to Admit order: No - Referrals Referrals: Shanice Souza MD [Primary Care Provider] - - Patient Instructions Additional Instructions: Follow up with our Clinic system this week. You should be called in the next couple of days to make an appointment. If you are not called, then call the number on the pamphlet you were given. Return to [facility] for a repeat Beta Check 48 hours from your first visit. Return to the Emergency Department for increasing pain, chest pain, shortness of breath, vomiting, fever, or any other new, worsening or concerning symptoms. - Post Discharge Activity Forms/Work/School Notes: Back to Work
--- NOTE | 2019-02-10 21:57 | PDOC ---
Attending Attestation - Resident Resident Name: Angelique Mcelroy - ED Attending Attestation I have performed the following: I have examined & evaluated the patient, The case was reviewed & discussed with the resident, I agree w/resident's findings & plan, Exceptions are as noted - HPI HPI: 02/10/19 21:52 43 yo female had a 20 minute episode of epigastric pain that resolved - Physicial Exam PE: 02/10/19 21:53 alert,conversant 43 yo female in no acute distress head ncat neck supple lungs cta b/l cvs [id number] abd no rebound,no guarding no cva tenderness skin warm and dry neuro axox3,ambulatory - Medical Decision Making 02/11/19 01:57 this pt experienced 20 minutes of epigastric pain that resolved by the time I saw her, benign abd exam she was at [facility] this weekend for threatened AB, had positive preg test and ultrasound that showed intrauterine preg ,no heart tones. She had the ultrasound results with her and asked if she was still she was told to have repeat bhcg and ultrasound with her anthropological linguist or go to our clinic 02/11/19 02:03
--- NOTE | 2019-02-11 11:27 | EKG ---
Test Reason : Blood Pressure : / mmHG Vent. Rate : 084 BPM Atrial Rate : 084 BPM P-R Int : 160 ms QRS Dur : 076 ms QT Int : 384 ms P-R-T Axes : 020 016 015 degrees QTc Int : 453 ms NORMAL SINUS RHYTHM MINIMAL VOLTAGE CRITERIA FOR LVH, MAY BE NORMAL VARIANT BORDERLINE ECG WHEN COMPARED WITH ECG OF 19-JUL-2017 18:07, NO SIGNIFICANT CHANGE WAS FOUND Confirmed by RTACY JUAREZ, NOMI ([id number]) on 02/11/2019 11:27:04 AM Referred By: Confirmed By:NOMI MOLINA MD
== END 2019-02-10 21:56 | disposition home or self-care (01) ==
LOC: JER 20:24
DX: O26.899 Other specified pregnancy related conditions, unspecified trimester (principal); R10.13 Epigastric pain; Z3A.00 Weeks of gestation of pregnancy not specified; O16.9 Unspecified maternal hypertension, unspecified trimester; Z91.14 Patient's other noncompliance with medication regimen
CPT/HCPCS: 93005; 93010; 99282-25

== ENCOUNTER 2022-12-12 15:57 | Day surgery (SDC) | payer OTHER ==
[~2022-12-12 15:57] MED LIST: IRON SUCROSE INJECTION 200 MG in SODIUM CHLORIDE 100 ML IVPB ONE
[2022-12-12 18:00] VITALS: BP 142/82; PULSE 81; RESP 18; TEMP 98.6
== END 2022-12-12 17:15 | disposition home or self-care (01) ==
LOC: JONCNONCHE 15:57 → J7W 15:58 → JONCNONCHE 17:15
PROVIDERS: ATTEND Internal Medicine Hematology & Oncology
DX: E61.1 Iron deficiency (principal)
CPT/HCPCS: 96365; J1756

== ENCOUNTER 2022-12-19 16:15 | Day surgery (SDC) | payer OTHER ==
[~2022-12-19 16:15] MED LIST changes: +IRON SUCROSE COMPLEX 200 MG in SODIUM CHLORIDE 100 ML IVPB ONE; -IRON SUCROSE INJECTION 200 MG in SODIUM CHLORIDE 100 ML IVPB ONE
[2022-12-19 17:08] VITALS: RESP 18; TEMP 98.2
[2022-12-19 17:27] VITALS: BP 127/85; PULSE 70
== END 2022-12-19 17:30 | disposition home or self-care (01) ==
LOC: JONCNONCHE 16:15
PROVIDERS: ATTEND Internal Medicine Hematology & Oncology
PROC: 3E033GC Introduction of Other Therapeutic Substance into Peripheral Vein, Percutaneous Approach (ICD-10-PCS; principal; 2022-12-19)
DX: E61.1 Iron deficiency (principal)
CPT/HCPCS: 96365

== ENCOUNTER 2022-12-26 17:11 | Day surgery (SDC) | payer OTHER ==
[~2022-12-26 17:11] MED LIST changes: -IRON SUCROSE COMPLEX 200 MG in SODIUM CHLORIDE 100 ML IVPB ONE; +IRON SUCROSE INJECTION 200 MG in SODIUM CHLORIDE 100 ML IVPB ONE
[2022-12-26 17:56] VITALS: RESP 18; TEMP 97.8
[2022-12-26 18:18] VITALS: BP 125/74; PULSE 83
== END 2022-12-26 18:24 | disposition home or self-care (01) ==
LOC: JONCNONCHE 17:11 → J7W 17:15 → JONCNONCHE 18:24
PROVIDERS: ATTEND Internal Medicine Hematology & Oncology
PROC: 3E033GC Introduction of Other Therapeutic Substance into Peripheral Vein, Percutaneous Approach (ICD-10-PCS; principal; 2022-12-26)
DX: E61.1 Iron deficiency (principal)
CPT/HCPCS: 96365; J1756

== ENCOUNTER 2023-01-02 16:30 | Day surgery (SDC) | payer OTHER ==
[~2023-01-02 16:30] MED LIST changes: +IRON SUCROSE COMPLEX 200 MG in SODIUM CHLORIDE 100 ML IVPB ONE; -IRON SUCROSE INJECTION 200 MG in SODIUM CHLORIDE 100 ML IVPB ONE
[2023-01-02 17:18] VITALS: RESP 20; TEMP 98.3
[2023-01-02 17:51] VITALS: BP 126/75; PULSE 73
== END 2023-01-02 18:00 | disposition home or self-care (01) ==
LOC: JONCNONCHE 16:30 → J7W 16:30 → JONCNONCHE 18:00
PROVIDERS: ATTEND Internal Medicine Hematology & Oncology
PROC: 3E033GC Introduction of Other Therapeutic Substance into Peripheral Vein, Percutaneous Approach (ICD-10-PCS; principal; 2023-01-02)
DX: E61.1 Iron deficiency (principal)
CPT/HCPCS: 96365